=== PATIENT | female | born 1970 | race Caucasian/White ===

== ENCOUNTER 2019-08-30 00:11 | Outpatient (CLI) | payer BC, SELFPAY ==
[2019-08-30 17:53] LABS: SARS-CoV-2 RNA PCR Negative
== END 2019-08-30 00:12 | disposition home or self-care (01) ==
LOC: ANHCOVIDDT 00:12
PROVIDERS: Visit Provider Obstetrics & Gynecology
DX: Z01.818 Encounter for other preprocedural examination (principal); Z11.59 Encounter for screening for other viral diseases
CPT/HCPCS: 87635; C9803; U0003

== ENCOUNTER 2019-09-02 02:25 | Day surgery (SDC) | payer BC, SELFPAY ==
[2019-08-19 14:46] VITALS: BMI 39.2
--- NOTE | 2019-08-29 18:16 | HP_ITS ---
DATE OF SERVICE: 09/02/2019 Surgery is scheduled for September 01. HISTORY OF PRESENT ILLNESS: The patient is 49-year-old G3, P3, who came to me for consultation due to irregular bleeding. She has been taking progestin only pills for cycle control and help with PMS symptoms. The prescription was switched to a different brand recently and she had a week or so without pills. Her bleeding was more irregular in the last month or 2. She had 6 weeks between her cycles and it lingered a few extra days, then her most recent period has been very heavy, changing Super Plus tampon every 2 hours. They are usually heavy for about 3 days once a month. She denies chest pain, shortness of breath, or dizziness. She denies pelvic pain, but has pain in her left hip and she has a torn labrum. She had a fibroid that was found incidentally on MRI done for her hip. She denies urinary or bowel complaints and is not sexually active. MEDICAL HISTORY: Depression, hypothyroidism, sleep apnea. MEDICATIONS: 1. Azelastine. 2. Bupropion. 3. Citalopram. 4. Levothyroxine. 5. Singulair. 6. Progestin only pills. ALLERGIES: NO KNOWN DRUG ALLERGIES. SURGICAL HISTORY: Anterior cruciate ligament repair of her knee and laparoscopic appendectomy. SOCIAL HISTORY: Negative for tobacco or drug use. She occasionally drinks alcohol. OB HISTORY: She had 3 vaginal deliveries. Largest baby weighed 8 pounds 12 ounces. KETTLE HAND HISTORY: Remote history of abnormal PAP. No history of STDs. FAMILY HISTORY: Her maternal grandmother had uterine cancer. Her mother had breast cancer at age 55. REVIEW OF SYSTEMS: Negative. PHYSICAL EXAMINATION: VITAL SIGNS: Her weight is 255, blood pressure 142/89. GENERAL: No apparent distress. HEART: Regular rate and rhythm. LUNGS: Clear to auscultation. ABDOMEN: Soft, nontender, nondistended. PELVIC: Uterus is about 10-12 week size, nontender, mobile, and smooth. Adnexa nontender with no palpable mass. IMAGING: Pelvic ultrasound shows uterus measuring 11.8 x 7 x 6 cm with one fibroid measuring 5.4 cm. Normal ovaries bilaterally. ASSESSMENT AND PLAN: Fibroids, menometrorrhagia, progestin only pill has not been working as well as expected, so she is now opting for surgical therapy. She is not a candidate for ablation since she has a fibroid more than 2.5 cm in size, so she signed consent for total vaginal hysterectomy with bilateral salpingectomy after the risks, benefits, complications, and alternatives were discussed. D I MT: Gracy
[2019-09-02] VITALS (16 sets, daily range): BP systolic 94–143; BP diastolic 53–92; PULSE 53–70; RESP 10–20; TEMP 36–37.6; O2SAT 92–100
--- NOTE | 2019-09-02 10:14 | WPDANESEPPF ---
Anes - Initial Pre Proc Eval Procedure: Operation Date: 09/02/19 13:30 Proposed Procedures p Total Vaginal Hysterectomy with Bilateral Salpingectomy - Yani Thomas MD Date/Time: 09/02/19 10:14 Surgeon: Yani Thomas MD Pre Op Diagnosis: Fibroids, Menometrorrhagia Patient Data Age: 49 Gender: F Height: 1.7 m Weight: 113.6 kg Allergies Allergy/AdvReac Type Severity Reaction Status Date / Time No Known Allergies Allergy Verified 09/02/19 11:45 Home Medications Medication Instructions Recorded Confirmed Type azelastine 1 spray INTRANASAL HS 08/19/19 09/02/19 History bupropion HCl 150 mg PO QAM 08/19/19 09/02/19 History citalopram 20 mg PO HS 08/19/19 09/02/19 History fluticasone propionate 1 spray INTRANASAL QAM 08/19/19 09/02/19 History levothyroxine 100 mcg PO DAILY 08/19/19 09/02/19 History montelukast 10 mg PO HS 08/19/19 09/02/19 History norethindrone (contraceptive) 0.35 mg PO HS 08/19/19 09/02/19 History [Norlyda] Patient hx anesthesia problems: none Family hx anesthesia problems: none PMFSH Past Medical History Medical History (Updated 09/02/19 @ 10:17 by Andrzej Canales MD) Abnormal uterine bleeding Anxiety Depression Hypothyroidism Obesity TWAN (obstructive sleep apnea) Anes - Eval Final PreProcedure Day of Procedure 09/02/19 10:14 Patient weight: obese Heart: regular rate and rhythm Lungs: clear to auscultation and normal air movement Airway: Mallampati scale class II Neurological: alert and oriented Last oral intake: >/= 8 hours ASA classification: III Emergent: no Anesthetic plan: proceed Anesthesia type and monitoring: general ETT Informed Consent: The patient's anesthetic plan and its attendant risks and benefits were discussed with the patient/family/POA. Questions were solicited and answers provided to the satisfaction of the patient/family/POA.
[2019-09-02] MEDS: LACTATED RINGERS 1,000 ML 30 ML IV CONT ×2 (11:55→16:05)
--- NOTE | 2019-09-02 13:50 | WPDHPUPDATE1 ---
History and Physical Update Update Date/Time: 09/02/19 13:50 History and Physical has been reviewed, including an updated exam of the patient. There are NO changes in the patient's condition. Risks, benefits, and alternatives have been discussed and questions answered. Patient agrees to proceed with procedure.
[2019-09-02] MEDS: ceFAZolin 2 GM/D5W 50 ML 2 GM/50 ML BAG IVPB (14:28)
--- NOTE | 2019-09-02 14:31 | PM.OP ---
Procedure Note - Brief Procedure Note - Brief Date of procedure: 09/02/19 Pre-op diagnosis: Fibroids, Menometrorrhagia Post-op diagnosis: same Procedure performed: TVH Anesthesia: GETA Surgeon: Yani Thomas MD Estimated blood loss (mL): 300 Drains: Yes (Arceo) Packing: No Pathology: yes Complications: No immediate complications Condition: stable Disposition: PACU Findings: Enlarged fibroid uterus, Fallopian tubes and ovaries not visualized
[2019-09-02] MEDS: KETOROLAC 30 MG/ML VIAL (*BKC) IV PUSH ×2 (15:49→22:15)
--- NOTE | 2019-09-02 18:22 | OBPPTRN ---
Patient transferred to post room #179 via bed. Support person present. Oriented to unit, room, information board, admission packet and security measures. Patient verbalizes understanding.
[2019-09-02] MEDS: METOCLOPRAMIDE HCL INJ 10 MG/2 ML VIAL IV PUSH (19:09)
[2019-09-02] MEDS: CITALOPRAM HYDROBROMIDE 20 MG TABLET PO (21:10)
[2019-09-02] MEDS: MONTELUKAST SODIUM 10 MG TABLET PO (21:10)
[2019-09-02] MEDS: ENOXAPARIN 40 MG/0.4 ML SYRINGE SUB-Q (21:11)
[2019-09-03] MEDS: DEXTROSE 5%/LACTATED RINGERS 1,000 ML 125 ML IV CONT (01:08)
[2019-09-03] MEDS: KETOROLAC 30 MG/ML VIAL (*BKC) IV PUSH ×2 (03:36→09:23)
[2019-09-03 03:40] VITALS: BP 106/60; PULSE 50; RESP 16; TEMP 37.1; O2SAT 98
[2019-09-03 04:06] LABS: Basophils Percent Auto 0.3 % (0.2-1.2); Hematocrit 32.1 % (37.0-47.0); Immature Granulocyte Absolute 0.04 K/mm3 (0.00-0.031); Immature Granulocyte Percent A 0.3 % (0-0.5); Lymphocytes Absolute Auto 1.52 K/mm3 (0.9-3.2); Lymphocytes Percent Auto 12.6 % (18.3-44.2); Mean Corpuscular HGB Conc 31.2 g/dl (32-36); Mean Corpuscular Hemoglobin 26.2 pg (26-34); Mean Platelet Volume 10.4 fl (7.4-10.4); Monocytes Absolute Auto 0.5 K/mm3 (0.1-0.6); Neutrophils Absolute Auto 9.9 K/mm3 (1.3-6.7); Neutrophils Percent Auto 82.8 % (45.5-73.1); Platelet Count Result 289 k/mm3 (150-375); Red Blood Count 3.82 M/mm3 (4.2-5.4); Red Cell Distribution Width 14.5 % (11.5-14.5)
[2019-09-03 04:16] LABS: Chloride 106 mmol/L (98-107)
[2019-09-03 04:45] LABS: Blood Urea Nitrogen 11 mg/dL (7-17); Calcium 8.4 mg/dL (8.4-10.2); Carbon Dioxide 29 mmol/L (22-30); Estimated CRCL calculation 99 ml/min; Estimated Glomerular Filt Rate > 60; Glucose 139 mg/dL (65-105); Potassium 4.5 mmol/L (3.4-5.0); Sodium 136 mmol/L (137-145)
[2019-09-03 06:59] VITALS: BP 108/64; PULSE 52; RESP 16; TEMP 36.8; O2SAT 98
[2019-09-03] MEDS: LEVOTHYROXINE SODIUM 100 MCG TABLET PO (07:02)
--- NOTE | 2019-09-03 07:51 | WPDANESPN ---
Anes - Prog Note Post-Op Date/Time: 09/03/19 07:51 Cardiovascular status: normal Respiratory status: normal Airway patency: baseline Mental status: baseline Post-Op hydration status: normal Vital Signs: Last Vital Signs Temp 36.8 C 09/03/19 06:59 Pulse 52 L 09/03/19 06:59 Resp 16 09/03/19 06:59 BP 108/64 09/03/19 06:59 Pulse Ox 98 09/03/19 06:59 I/O: Intake & Output 09/02/19 09/02/19 09/03/19 15:59 23:59 07:59 Intake Total 50 1000 200 Output Total 1450 500 Balance 50 -450 -300 Laboratory Tests 09/03/19 04:01 09/03/19 04:01 09/03/19 09/03/19 04:01 04:01 WBC 12.0 H RBC 3.82 L Hgb 10.0 L Hct 32.1 L MCV 84.0 MCH 26.2 MCHC 31.2 L RDW 14.5 Plt Count 289 MPV 10.4 Immature Gran % (Auto) 0.3 Neut % (Auto) 82.8 H Lymph % (Auto) 12.6 L [place] % (Auto) 4.0 Eos % (Auto) 0.0 Baso % (Auto) 0.3 Lymph # (Auto) 1.52 [place] # (Auto) 0.5 Eos # (Auto) 0.0 Baso # (Auto) 0.0 Abs Immat Gran (auto) 0.04 H Absolute Neuts (auto) 9.9 H Absolute Nucleated RBC 0.0 Nucleated RBC % 0.0 Sodium 136 L Potassium 4.5 Chloride 106 Carbon Dioxide 29 BUN 11 Creatinine 0.80 Estim Creat Clear Calc 99 Estimated GFR > 60 Glucose 139 H Calcium 8.4 Post-procedural complaints: none Patient Feedback: Patient satisfied with anesthetic care.
--- NOTE | 2019-09-03 08:06 | PM.GYNPNOP ---
WELFARE OFFICER - A/P Assessment and plan (1) Fibroid uterus: Code(s): D25.9 - Leiomyoma of uterus, unspecified Status: Acute Assessment and Plan: Doing well s/p TVH. Discharge home. Follow up in 1 week Postoperative Procedures: Procedures Operation Date: 09/02/19 13:30 Actual Procedures Side Surgeon p Total Vaginal Hysterectomy with Bilateral Salpingectomy Not Applicable Yani Thomas MD Time Spent With Patient Time: Total time spent is greater than 50% in coordination of care (as documented) at patient's floor/unit and/or counseling patient: Time with patient: less than 15 minutes WELFARE OFFICER- PN:Subj Post-Op Subjective Date/time seen: 09/03/19 08:06 Interval history: Voided one time, small amount. No flatus yet. No CP, SOB, dizziness. No vaginal bleeding Subjective: patient has no complaints, patient desires discharge, pain is well controlled and patient is tolerating oral intake Review of Systems Review of Systems: All systems reviewed & are unremarkable except as noted in HPI and below (HPI) Exam Const: General: comfortable, no acute distress, alert and awake Resp: Auscultation: clear to auscultation bilaterally Cardio: Rate: regular rate Rhythm: regular rhythm GI: Inspection: non-distended Auscultation: normal bowel sounds Extrem: General: normal to inspection, no calf tenderness and no edema Psych: Mental Status: mental status grossly normal WELFARE OFFICER - PN: Obj Data Vital Signs Vital Signs: Vital Signs - 24 hr 09/02/19 11:36 09/02/19 16:04 09/02/19 16:15 Temperature 36.6 C 36.0 C L Pulse Rate 70 60 56 L Respiratory Rate 20 14 10 L Blood Pressure 143/92 H 123/72 112/68 Pulse Oximetry 100 100 100 09/02/19 16:30 09/02/19 16:45 09/02/19 17:00 Temperature Pulse Rate 60 61 61 Respiratory Rate 12 14 18 Blood Pressure 121/66 113/72 119/68 Pulse Oximetry 98 96 98 09/02/19 17:10 09/02/19 17:20 09/02/19 17:30 Temperature 36.8 C Pulse Rate 63 54 L 59 L Respiratory Rate 14 16 Blood Pressure 119/71 115/91 H 104/59 L Pulse Oximetry 98 95 93 09/02/19 17:45 09/02/19 18:00 09/02/19 18:30 Temperature 37.6 C Pulse Rate 59 L 55 L 53 L Respiratory Rate 16 16 Blood Pressure 103/65 103/60 102/63 Pulse Oximetry 92 96 97 09/02/19 19:30 09/02/19 20:30 09/02/19 22:17 Temperature 37.1 C Pulse Rate 59 L 58 L 60 Respiratory Rate 16 16 16 Blood Pressure 108/61 94/53 L 112/69 Pulse Oximetry 97 95 98 09/02/19 22:30 09/03/19 03:40 09/03/19 06:59 Temperature 37.1 C 37.1 C 36.8 C Pulse Rate 60 50 L 52 L Respiratory Rate 18 16 16 Blood Pressure 112/69 106/60 108/64 Pulse Oximetry 98 98 98 Intake/Output Intake/Output: Intake & Output 08/31/19 09/01/19 09/02/19 09/03/19 23:59 23:59 23:59 23:59 Intake Total 1050 200 Output Total 1450 500 Balance -400 -300 Meds/Results Medications: Active Medications Generic Name Dose Route Start Last Admin Trade Name Freq PRN Reason Stop Dose Admin Hydrocodone Bitart/Acetaminophen 1 tab 09/02/19 17:14 [place] 5-325 Mg PO Q3H PRN Pain Rated 5 or Less Hydrocodone Bitart/Acetaminophen 1 tab 09/02/19 17:14 [place] 10-325 Mg PO Q3H PRN Pain Rated 6 or Greater Azelastine HCl 1 spray 09/02/19 21:00 09/03/19 02:01 Astelin NASAL Not Given HS FLORIAN Bupropion HCl 150 mg 09/03/19 09:00 Wellbutrin Xl (24 Hr) PO QAM FLORIAN Citalopram Hydrobromide 20 mg 09/02/19 21:00 09/02/19 21:10 Celexa PO 20 mg HS FLORIAN Administration Enoxaparin Sodium 40 mg 09/02/19 21:00 09/02/19 21:11 Lovenox SUB-Q 40 mg DAILY FLORIAN Administration Fluticasone Propionate 1 spray 09/03/19 09:00 Flonase 0.05% Nasal [place] NASAL QAM FLORIAN Dextrose/Lactated Ringer's 1,000 mls @ 125 mls/hr 09/02/19 17:14 09/03/19 01:08 Dextrose 5%/Lactated Ringers IV CONT 125 mls/hr .Q8H FLORIAN Administration Ibuprofen 600 mg 09/02/19 17:14 Motrin PO Q6H PRN Cramping Ketorol
[2019-09-03] MEDS: FLUTICASONE PROPIONATE 0.05% NA SPR 16 GM BTL (*BKC) 1 SPRAY NASAL (09:22)
[2019-09-03] MEDS: buPROPion HCL XL (24 HR) 150 MG TABCR PO (09:23)
[2019-09-03] MEDS: ENOXAPARIN 40 MG/0.4 ML SYRINGE SUB-Q (09:24)
[2019-09-03 11:45] VITALS: BP 133/51; PULSE 67; RESP 18; TEMP 36.7; O2SAT 95
--- NOTE | 2019-09-03 11:50 | OP_ITS ---
DATE OF PROCEDURE: 09/02/2019 PREOPERATIVE DIAGNOSIS: Fibroids, menometrorrhagia. POSTOPERATIVE DIAGNOSIS: Fibroids, menometrorrhagia. PROCEDURE PERFORMED: Total vaginal hysterectomy. ANESTHESIA: General endotracheal tube. ESTIMATED BLOOD LOSS: 300 mL. COMPLICATIONS: None. FINDINGS: Enlarged fibroid uterus. Fallopian tubes and ovaries not visualized. INDICATIONS: A 49-year-old, G3, P3, who came to me for consultation due to irregular bleeding. She has been taking a progestin only pill for cycle control. The prescription was switched to a different brand and she had a week or so without pills and her bleeding got more irregular and it lasted for about 2 months. Her most recent period has been very heavy, changing a super plus tampon every 2 hours and she has a lot of cramping with her period as well. She was found to have a fibroid measuring over 5 cm on an MRI that was done for her hip, so in light of her irregular heavy bleeding and the fibroid, she opted for hysterectomy and we opted for a vaginal approach. She signed consent after the risks, benefits, complications, and alternatives were discussed. DESCRIPTION OF PROCEDURE: She was taken to the operating room where general anesthesia was obtained. She was prepared and draped in the normal sterile fashion in the dorsal lithotomy position. A weighted speculum was placed in the vagina. The cervix was grasped with 2 single-tooth tenaculum. The cervix was circumferentially incised with a scalpel and the underlying cervix was then dissected off the overlying vaginal tissue with the Schmidt scissors. The posterior cul-de-sac was entered sharply and the Tena weighted retractor was placed instead of the regular weighted speculum. The uterosacral ligaments were clamped, coagulated, and transected using the LigaSure. The cardinal ligaments on both sides were clamped and transected. The anterior cul-de-sac was then entered sharply and a Marla retractor placed into the peritoneal cavity. The broad ligament including the uterine arteries were serially clamped, coagulated, and transected. The uterus was quite large and globular, so once the uterine arteries had been transected, excellent hemostasis noted. The uterus was morcellated using a scalpel and Schmidt scissors, cutting out wedge-shaped pieces of tissue from the interior of the uterus until it was small enough to fit through the vaginal opening. There was still a pedicle left on the right cornua, which was easily clamped and transected using the LigaSure device. The left cornua had already been divided and then, the uterus was easily brought through the vaginal opening. Using a sponge stick to push away any bowel and epiploic appendages, about 5 minutes was spent looking for the fallopian tubes and ovaries, which were never visualized, so eventually decision was made to proceed with closure. All operative sites were noted to be hemostatic. The peritoneum was then closed using a 2-0 Vicryl placed in a pursestring fashion to close the peritoneum and the vaginal cuff was closed using interrupted 2-0 Vicryl [id number] sutures. Her urine was noted to be clear and yellow at the end of the case. All instruments were removed from the vagina. She tolerated the procedure well. Sponge, lap, needle, and instrument counts were correct x2 and she was taken to the recovery room in stable condition. Hunter I MT: Gracy
--- NOTE | 2019-09-03 12:55 | DS_ITS ---
DATE OF DISCHARGE: 09/03/2019 ADMISSION DIAGNOSIS: Menometrorrhagia and fibroids. DISCHARGE DIAGNOSIS: Status post total vaginal hysterectomy. DISCHARGE MEDICATIONS: Include her normal home medications, ibuprofen and [place] p.r.n. FOLLOWUP APPOINTMENT: Will be in the office in 1 week. HOSPITAL COURSE: A 49-year-old G3, P3, was admitted on September 01, for a planned vaginal hysterectomy. Her surgery was uneventful. She had an estimated blood loss of 300 mL. She is meeting all postoperative milestones on postoperative day #1 and expressed a desire to be discharged home. Her hemoglobin on postoperative day #1 is 10.0. She otherwise has normal vital signs and no signs or symptoms of anemia. D I MT: Gracy
== END 2019-09-03 12:43 | disposition home or self-care (01) ==
LOC: ANHSURGERY 11:22 → ANHOB2 17:17
PROVIDERS: PCP Physician Assistant Medical; Visit Provider Obstetrics & Gynecology
PROC: (CPT 58260; principal; 2019-09-02 13:30)
DX: D25.1 Intramural leiomyoma of uterus (principal); N73.6 Female pelvic peritoneal adhesions (postinfective); N80.0 Endometriosis of uterus; E03.9 Hypothyroidism, unspecified; G47.33 Obstructive sleep apnea (adult) (pediatric); F41.8 Other specified anxiety disorders; E66.9 Obesity, unspecified; Z68.39 Body mass index [BMI] 39.0-39.9, adult
CPT/HCPCS: 58263; 36415; 80048; 85025; 88307; 99199; A9270; J0330; J0690; J1100; J1650; J1885; J2250; J2405; J2704; J2765; J3010; J7120; J7121